=== PATIENT | male | born 1975 | race Hispanic/Latino ===

== ENCOUNTER 2024-01-13 21:24 | Emergency (ER) | payer OTHER ==
[~2024-01-13] VITALS: Ht 177.8 cm; Wt 102.5 kg
[2024-01-13 23:29] LABS: BASOPHILS # (AUTO) 0.05 K/uL (0.00-0.20); BASOPHILS % (AUTO) 0.3 % (0.0-5.0); EOSINOPHILS # (AUTO) 0.14 K/uL (0.00-0.70); HEMATOCRIT 43.9 % (42-54); IMMATURE GRANULOCYTE ABSOLUTE 0.08 K/uL (0-1); LYMPHOCYTES # (AUTO) 1.8 K/uL (1.0-4.8); LYMPHOCYTES % (AUTO) 12.2 % (21.0-51.0); MEAN CORPUSCULAR HEMOGLOBIN 30.2 pg (27.0-33.0); MEAN CORPUSCULAR HGB CONC 34.2 g/dL (32.0-36.0); MEAN CORPUSCULAR VOLUME 88.5 fL (79-99); MONOCYTES % (AUTO) 6.5 % (3.0-13.0); NEUTROPHILS # (AUTO) 11.6 K/uL (1.8-7.7); NEUTROPHILS % (AUTO) 79.5 % (40.0-77.0); PLATELET COUNT (AUTO) 264 K/uL (130-400); RED BLOOD CELL COUNT(AUTO) 4.96 MIL/uL (4.50-6.20); RED CELL DISTRIBUTION WIDTH 13.6 % (11.0-15.5); WHITE BLOOD COUNT (AUTO) 14.6 K/uL (4.8-10.8)
[2024-01-13 23:30] LABS: SARS-CoV-2, RNA, NAAT NEGATIVE SARS CoV-2 (NEGATIVE)
[2024-01-13] MEDS: DEXAMETHASONE SOD PHOSPHATE 4 MG/ML 1ML VIAL IV ONE (23:30)
[2024-01-13] MEDS: KETOROLAC 30MG VIAL (30MG/ML) IVP ONE (23:31)
[2024-01-13] MEDS: DiphenhydrAMINE HCL 50 MG/ML VIAL IV ONE (23:31)
[2024-01-13] MEDS: FAMOTIDINE 20MG VIAL IV ONE (23:31)
[2024-01-13] MEDS: METOCLOPRAMIDE 10 MG/2 ML VIAL IVP ONE (23:31)
[2024-01-13] MEDS: 0.9%NACL 1000ML 1,000 ML IV ONE (23:31)
[2024-01-13 23:35] LABS: INFLUENZA TYPE A Negative For Type A (NEGATIVE)
[2024-01-13 23:36] LABS: CREATININE 1.1 mg/dL (0.5-1.3); POTASSIUM 3.6 mmol/L (3.5-5.1)
[2024-01-13 23:41] LABS: ALBUMIN 3.8 g/dL (3.5-5.0); BILIRUBIN,TOTAL 0.3 mg/dL (0.2-1.0); TOTAL PROTEIN, SERUM 7.6 g/dL (6.0-8.3)
[2024-01-13 23:42] LABS: INFLUENZA TYPE B Positive For Type B (NEGATIVE); RAPID GROUP A STREP positive (NEGATIVE)
[2024-01-14] MEDS: OSELTAMIVIR PHOSPHATE 75 MG CAP PO ONE (00:09)
[2024-01-14] MEDS: CEFTRIAXONE 2GM VIAL IVPB ONE (00:09)
[2024-01-14] MEDS ORDERED: OSEL75 PO (00:24)
[2024-01-14] MEDS ORDERED: PENI500T2 PO (00:24)
[2024-01-14] MEDS ORDERED: METO-296 PO (00:24)
[2024-01-14 00:57] VITALS: BP 132/78; PULSE 72; RESP 18; O2SAT 100
== END 2024-01-14 00:56 | disposition home or self-care (01) ==
LOC: EDH 21:24
DX: G43.909 Migraine, unspecified, not intractable, without status migrainosus (principal); J02.0 Streptococcal pharyngitis; J11.1 Influenza due to unidentified influenza virus with other respiratory manifestations; Z20.822 Contact with and (suspected) exposure to COVID-19
CPT/HCPCS: 99284; 96375; 87635; 80053; 85025; 87880; 87804 ×2; 36415; 96365; J1100; J1200; J3490; J1885; J2765; J0696

== ENCOUNTER 2025-06-26 13:05 | Emergency (ER) | payer SELFPAY ==
[~2025-06-26] VITALS: Ht 172.7 cm; Wt 100.5 kg
[~2025-06-26 13:05] MED LIST: METO-296 PO; OSEL75 PO; PENI500T2 PO
[2025-06-26] MEDS: FAMOTIDINE 20MG VIAL IV ONE (14:03)
--- NOTE | 2025-06-26 14:10 | ERN ---
General Chief Complaint: Skin Rash/Abscess Stated Complaint: RASH Time Seen by MD: 13:14 Source: patient History of Present Illness Initial Comments Patient has new onset rash to all four extremities. They appear like eczema. He has a family history of eczema. He mentions when he was 10 years old he had a similar rash on his back which was scraped and tested and was positive for staph. He received antibiotics in the rash went away. He wonders if the same thing is happening now. Patient states there was nothing new is environment except that now he is drying his clothes outdoors and possibly the clothes are getting exposed to allergens causing his rash. Timing/Duration: 1 week Allergies: Coded Allergies: No Known Allergies (Unverified Allergy, Unknown, 01/13/24) Home Meds Active Scripts Penicillin V Potassium (Penicillin V Potassium) 500 Mg Tablet, 1 TAB PO QID for 10 Days, #40 TAB 0 Refills Prov:POLA CASTANEDA Sr., MD 01/14/24 Oseltamivir Phosphate (Tamiflu) 75 Mg Cap, 75 MG PO BID, #9 CAP 0 Refills Prov:POLA CASTANEDA Sr., MD 01/14/24 Metoclopramide HCl (Reglan) 10 Mg Tablet, 10 MG PO QIDP PRN for Nausea and/or Headache, #40 TAB 2 Refills Prov:POLA CASTANEDA Sr., MD 01/14/24 Past Medical History Past Medical History: No Pertinent History Medical History Other: denies p,mhx Past Surgical History: None Constitutional: (-) chills, (-) diaphoresis, (-) fever, (-) malaise, (-) weakness, (-) other documentation EENTM: (-) eye pain, (-) blurred vision, (-) tearing, (-) double vision, (-) ear pain, (-) ear discharge, (-) nose pain, (-) nose congestion, (-) throat pain, (-) Throat swelling, (-) mouth pain, (-) tooth pain, (-) mouth swelling, (-) other documentation Respiratory: (-) cough, (-) orthopnea, (-) short of breath, (-) stridor, (-) wheezing, (-) other documentation Cardiovascular: (-) chest pain, (-) edema, (-) palpitations, (-) syncope, (-) dyspnea on exertion, (-) other documentation Gastrointestinal/Abdominal: (-) nausea, (-) vomiting, (-) diarrhea, (-) abdominal pain, (-) abdominal distention, (-) constipation, (-) rectal bleeding, (-) dark stool/melena, (-) other documentation Musculoskeletal: (-) Neck pain, (-) back pain, (-) Flank Pain, (-) joint pain, (-) joint swelling, (-) muscle pain, (-) muscle stiffness, (-) gout, (-) other documentation Skin: (-) laceration, (-) contusion, (-) abrasion, (-) abscess, (-) rash, (-) change in color, (-) change in hair, (-) change in nails, (-) diaphoresis, (-) dryness, (-) other documentation Neuro: (-) altered mental status, (-) headache, (-) syncope, (-) paralysis, (-) numbness, (-) seizure, (-) pre-existing deficit, (-) tremors, (-) weakness, (-) dizziness, (-) slurred speech, (-) vertigo, (-) other documentation Physical Exam General Appearance: (+) no apparent distress Orientation: (+) alert Head/Face Trauma: No Skin Comment Patient does indeed have rash that looks like it could be an allergic reaction it is on all four extremities. It could also be a staff infection. Results Laboratory and Microbiology Lab and Micro Result Laboratory Tests Test 06/26/25 14:06 White Blood Count 7.5 K/uL (4.8-10.8) Red Blood Count 4.69 MIL/uL (4.50-6.20) Hemoglobin 14.4 g/dL (14.0-18.0) Hematocrit 41.7 % (42-54) L Mean Corpuscular Volume 88.9 fL (79-99) Mean Corpuscular Hemoglobin 30.7 pg (27.0-33.0) Mean Corpuscular Hemoglobin Concent 34.5 g/dL (32.0-36.0) Red Cell Distribution Width 13.9 % (11.0-15.5) Platelet Count 279 K/uL (130-400) Mean Platelet Volume 10.9 fL (7.5-10.5) H Immature Granulocyte % (Auto) 0.3 % (0-1) Neutrophils (%) (Auto) 62.3 % (40.0-77.0) Lymphocytes (%) (Auto) 26.3 % (21.0-51.0) Monocytes (%) (Auto) 8.9 % (3.0-13.0) Eosinophils (%) (Auto) 1.7 % (0.0-8.0) Basophils (%) (Auto) 0.5 % (0.0-5.0) Neutrophils # (Auto) 4.7 K/uL (1.8-7.7) Lymphocytes # (Auto) 2.0 K/uL (1.0-4.8) Monocytes # (Auto) 0.7 K/uL (0.1-1.0) Eosinophils # (Auto) 0.13 K/uL (0.00-0.70) Basophils # (Auto) 0.04 K/uL (0.00-0.20) Absolute Immature Granulocyte (auto 0.02 K/uL (0-1) Nucleated Red Blood Cells 0.0 % (0.0-0.19) MDM Eczema versus staph versus poison felipe versus new detergent versus some environmental allergen. His is coming down with similar symptoms at the very same time which makes me suspect an environmental agent or an infectious agent. MDM: Differential diagnosis: See above Rationale: Tests considered and ordered secondary to shared decision making include: Previous outside records reviewed: Old ER visits. Risk of complication and/or morbidity or mortality of patient management: None Medications-Per medication reconciliation Need for hospitalization: Patient does meet criteria for hospitalization. Need for emergency major/minor surgery: No There are no social concerns with this patient. Prescription drug management Prescriptions will include symptomatic care Patient's prior external medical records from other ER visits were reviewed by me as indicated. Prior testing and results from previous visits were reviewed. Prior tests were taken into account with medical decision making and resource utilization, independent historian/historians were used to obtain complete medical history. I independently interpreted the test that were performed, results were reviewed by me and considered findings on radiology if ordered. Patient's rash seems to have lost some of its redness with the steroids. His CBC does not show any evidence of an allergic reaction. I will discharge him with a prescription for Bactroban. He can purchase cortisol cream [id number]. ED Course Orders Procedure Category Date Status Time Cbc With Differential LAB 06/26/25 Complete 13:29 Methylprednisolone PHA 06/26/25 Complete Succ 125mg (Solu-Medr 13:30 Famotidine 20mg Vial PHA 06/26/25 Complete (Pepcid 20mg Vial) 13:30 Diphenhydramine Hcl PHA 06/26/25 Complete (Benadryl Inj) 13:30 Cefazolin Sodium 1 Gm PHA 06/26/25 Complete Vial (Ancef 1 Gm V 13:29 Current Medications Medications (Trade) Dose Ordered Sig/Cata Route PRN Reason Start Time Stop Time Status Last Admin Dose Admin Cefazolin Sodium (ANCEF 1 gm vial) 1 gm ONCE STAT IVP 06/26/25 13:29 06/26/25 13:32 DC 06/26/25 14:03 Diphenhydramine HCl (BENAdryl INJ) 50 mg ONCE ONCE IV 06/26/25 13:30 06/26/25 13:32 DC 06/26/25 14:03 Famotidine (Pepcid 20mg Vial) 20 mg ONCE ONCE IV 06/26/25 13:30 06/26/25 13:32 DC 06/26/25 14:03 Methylprednisolone Sodium Succinate (Solu-medROL 125MG) 125 mg ONCE ONCE IVP 06/26/25 13:30 06/26/25 13:32 DC 06/26/25 14:03 Vital Signs Date Time Temp Pulse Resp B/P (MAP) Pulse Ox O2 Delivery O2 Flow Rate FiO2 06/26/25 15:41 98.1 75 16 140/82 98 Room Air* 0 21 06/26/25 13:12 98.1 78 16 144/86 98 Room Air* 0 21 06/26/25 13:10 78 16 144/86 98 Room Air 0 DX & DISP Disposition: Discharge Departure Impression: Primary Impression: Staph skin infection Additional Impression: Eczema Condition: Stable Scripts Mupirocin (Mupirocin Ointment) 2 % Oint 1 APPL TP TID for 7 Days, #22 GM 0 Refills apply to affected area(s) Prov: PROSPER REBOLLEDO MD 06/26/25 Additional Instructions: I do not know the cause of your rash. It does not look like a yeast infection. It does look like eczema to me and it could be being caused by a staph infection. I have given you a g of Ancef IV and I am writing a prescription for an antibiotic ointment. Please follow-up with the primary care physician or a pet groomer who may have better insight as to the cause of your rash. Referrals: SELF,REFERRAL (PCP) PROSPER REBOLLEDO MD Jun 26, 2025 14:10
[2025-06-26 14:13] LABS: IMMATURE GRANULOCYTE ABSOLUTE 0.02 K/uL (0-1); NUCLEATED RED BLOOD CELLS 0.0 % (0.0-0.19); PLATELET COUNT (AUTO) 279 K/uL (130-400); RED BLOOD CELL COUNT(AUTO) 4.69 MIL/uL (4.50-6.20); RED CELL DISTRIBUTION WIDTH 13.9 % (11.0-15.5); WHITE BLOOD COUNT (AUTO) 7.5 K/uL (4.8-10.8)
[2025-06-26 15:41] VITALS: BP 140/82; PULSE 75; RESP 16; TEMP 98.1; O2SAT 98
[2025-06-26] MEDS ORDERED: MUPI22OI2 TP (16:23)
== END 2025-06-26 16:36 | disposition home or self-care (01) ==
LOC: EDH 13:05
DX: L30.9 Dermatitis, unspecified (principal); L08.89 Other specified local infections of the skin and subcutaneous tissue; B95.8 Unspecified staphylococcus as the cause of diseases classified elsewhere; Z79.899 Other long term (current) drug therapy
CPT/HCPCS: 99284; 96374; 96375; 85025; 36415; J2919; J1200; J3490; J0690